=== PATIENT | female | born 1985 | race Caucasian/White ===

== ENCOUNTER 2018-03-16 14:31 | Emergency (ER) | payer SELFPAY ==
[2018-03-16] MEDS ORDERED: Ondansetron ODT TAB* 4 MG PO ONE (14:55)
[2018-03-16] MEDS ORDERED: NS 0.9% 1000 ML* 1,000 ML IV ONE ×2 (15:30→16:14)
[2018-03-16] MEDS ORDERED: PROCHLORPERAZINE INJ 5 MG/ML 2 ML VIAL IV ONE (15:30)
[2018-03-16] MEDS ORDERED: Ketorolac INJ* 30 MG/ML 1 ML VIAL IV PUSH ONE (15:31)
[2018-03-16] MEDS ORDERED: diPHENhydraMINE IV* 50 MG/ML 1 ml VIAL (BENADRYL) IV ONE (15:31)
[2018-03-16 17:20] VITALS: BP 112/67
--- NOTE | 2018-03-16 18:32 | UC ---
Ottoniel Finn Jade, scribed for Fran Ospina MD on 03/16/18 at 1535 . Headache HPI - HPI Summary HPI Summary: Pt is a 32 y/o female who presents to [facility] c/o migraine with vomiting since this morning at 05:00. She states she woke up at 5:00 AM in a sweat with a migraine, and started vomiting around 6:00 AM. Pt has since vomited about 20 times today. The pain intensity has been a constant 8/10, and the pain is centralized over the left hoahaoism and radiations down her neck lymph nodes, which is a common location for her migraines. Pt has a PHMx of migraines, about 2 per month, and normally only vomits once if at all. Usually Advil is able to treat the migraine, but she has not been able to keep down any medications today. She states that she often gets migraines when she starts to get sick. Pt also has a sore throat from allergies. Pt denies any fever, runny nose, cough, chest congestion, or ear pain. She denies taking any medications, including control, or any sickness at her home. - History Of Current Complaint Chief Complaint: UCHeadache Stated Complaint: VOMITING Time Seen by Provider: 03/16/18 15:16 Hx Obtained From: Patient Hx Last Menstrual Period: [id number] Onset/Duration: Sudden Onset Onset Of Symptoms: Still Present Initially Headache Was: Severe - 8/10 Currently Pain Is: Severe - 8/10 Pain Intensity: 8 Pain Scale Used: 0-10 Numeric Timing: Constant Character: Migraine Location of Headache: Other: - Over left hoahaoism Associated Signs And Symptoms: Positive: Nausea, Vomiting - About 20 times today - Allergies/Home Medications Allergies/Adverse Reactions: Allergies Allergy/AdvReac Type Severity Reaction Status Date / Time oxycodone Allergy Vomiting Verified 03/16/18 16:54 Penicillins Allergy Vomiting Verified 03/16/18 16:54 Home Medications: Home Medications Ibuprofen TAB* [Motrin TAB* 400 MG] 400 mg PO Q6H PRN 03/16/18 [History Confirmed 03/16/18] PMH/Surg Hx/FS Hx/Imm Hx GI/ History: Other - UTI Other GI/ History: , Neurological History: Migraine - Surgical History Surgical History: Yes Surgery Procedure, Year, and Place: Bilateral knee surgery,. ORAL - Family History Known Family History: Positive: Other - Ovarian cysts - Social History Alcohol Use: Rare Substance Use Type: None Smoking Status (MU): Never Smoked Tobacco Review of Systems Constitutional: Other - NEGATIVE: fever ENT: Other - NEGATIVE: nasal discharge, ear pain Respiratory: Other - NEGATIVE: cough, chest congestion Gastrointestinal: Vomiting - About 20 times today, Nausea Neurological: Headache - Migraine All Other Systems Reviewed And Are Negative: Yes Physical Exam - Summary Physical Exam Summary: General: well-appearing, mild pain distress Skin: warm, color reflects adequate perfusion, dry Head: Normal. Eyes: EOMI, BELA ENT: normal Neck: supple, nontender. Neck has full ROM. Moves neck slowly secondary to headache. Respiratory: CTA, breath sounds present Cardiovascular: RRR Abdomen: soft, nontender Bowel: present Musculoskeletal: normal, strength/ROM intact Neurological: sensory/motor intact, A&O x3 Psychological: affect/mood appropriate Triage Information Reviewed: Yes Vital Signs: Initial Vital Signs Temp 98.7 F 03/16/18 14:51 Pulse 73 03/16/18 14:51 Resp 18 03/16/18 14:51 BP 118/73 03/16/18 14:51 Pulse Ox 100 03/16/18 14:51 Vital Signs Reviewed: Yes Re-Evaluation - Re-Evaluation First Eval Re-Evaluation Time: 05:57 Change: Improved Comment: Discussed care with pt. Her migraine symptoms have improved. Headache Course/Dx - Course Course Of Treatment: HEADACHE SIMILAR TO PRIOR MIGRAINES BUT, DURATION IS LONGER. USUALLY VOMITING ONCE WITH MIGRAINES BUT, THIS EPISODE THE VOMITING IS IS NOT STOPPING. NO NECK STIFFNESS. NO FEVER. DISCUSSED THE S/SX OF MENINGITIS ; THE PATIENT DOES NOT CLINICALLY, AT THIS TIME, HAVE MENINGITIS. IMPROVED IN CLINIC. WISHES TO GO HOME. DISCUSSED GETTING RE EVAL FOR ANY PERSISTANT OR WORSENING SX. - Differential Dx/Diagnosis Provider Diagnoses: MIGRAINE. DEHYDRATION. VOMITING Discharge - Sign-Out/Discharge Documenting (check all that apply): Discharge/Admit/Transfer - Discharge - Discharge Plan Condition: Stable Disposition: HOME Prescriptions: Ondansetron ODT TAB* [Zofran 4 MG Odt TAB*] 4 mg PO Q6H PRN #10 tab.odt PRN Reason: Nausea Patient Education Materials: Dehydration (ED), Migraine Headache (ED), Acute Nausea and Vomiting (ED) Referrals: Myrna Feldman MD [Primary Care Provider] - Additional Instructions: FOLLOW UP WITH YOUR DOCTOR. GET RECHECKED FOR ANY WORSENING OF YOUR CONDITION; FEVER, PAIN, YOU FEEL ILL, DEHYDRATION, NECK STIFFNESS OR QUESTIONS OR CONCERNS. - Billing Disposition and Condition Condition: STABLE Disposition: Home The documentation as recorded by the Ottoniel dominguez Jade accurately reflects the service I personally performed and the decisions made by me, Fran Ospina MD.
== END 2018-03-16 18:22 | disposition home or self-care (01) ==
LOC: UCEAST 14:31
DX: G43.909 Migraine, unspecified, not intractable, without status migrainosus (principal); E86.0 Dehydration; R11.10 Vomiting, unspecified; Z87.440 Personal history of urinary (tract) infections; Z88.5 Allergy status to narcotic agent; Z88.0 Allergy status to penicillin
CPT/HCPCS: 81003; 84702; 96360; 96361; 96374; 96375; 99212; A9270-GY; G0463; J0780; J1200; J1885